=== PATIENT | female | born 1995 | race Two or more races ===

== ENCOUNTER 2022-07-24 22:33 | Emergency (ER) | payer MEDICAID ==
[~2022-07-24] VITALS: Ht 152.4 cm; Wt 90.9 kg
[2022-07-25 00:05] VITALS: BP 151/89
[2022-07-25 01:03] LABS: Urine Bacteria NONE SEEN /hpf (None Seen); Urine Blood Negative /uL (Negative); Urine Specific Gravity 1.016 (1.001-1.035); Urine WBC 6 /hpf (0 - 5)
[2022-07-25 01:11] LABS: Albumin 3.4 g/dL (3.4-5.0); Basophils # (auto) 0 10 ^3/uL (0-0.2); Basophils % (auto) 0.3 % (0.0-2.0); Calcium 8.5 mg/dL (8.5-10.1); Eosinophils # (auto) 0.3 10 ^3/uL (0-0.8); Eosinophils % (auto) 2.7 % (0.0-7.0); Hematocrit 40.5 % (36.0-46.0); Hemoglobin 13.5 g/dL (12.2-16.2); Lymphocytes # (auto) 3.4 10 ^3/uL (0.4-5.4); Lymphocytes % (auto) 30.4 % (10.0-50.0); Mean Corpuscular Hemoglobin 29.3 pg (28.0-32.0); Mean Corpuscular Hgb Conc. 33.3 g/dL (32.0-36.0); Monocytes # (auto) 0.7 10 ^3/uL (0-1.3); Monocytes % (auto) 6.2 % (0.0-12.0); Neutrophils # (auto) 6.8 10 ^3/uL (1.6-8.6); Neutrophils % (auto) 60.4 % (37.0-80.0); Nucleated Red Blood Cells % 0.1 %; Potassium 3.9 mmol/L (3.5-5.1); Red Blood Cells 4.61 10^6/uL (4.0-5.20); Red Cell Distribution Width 13.4 % (11.8-14.3); White Blood Cell 11.2 10^3/uL (4.4-10.8)
[2022-07-25 01:14] LABS: Bilirubin, Total 0.8 mg/dL (0.2-1.0); Total Protein 7.6 g/dL (6.4-8.2)
[2022-07-25] MEDS ORDERED: IOHEXOL 350 MG/ML 100ML IJ ONE (02:14)
[2022-07-25] MEDS ORDERED: BACDST PO (11:41)
[2022-07-25] MEDS ORDERED: IBUP800T27 PO (11:41)
== END 2022-07-25 05:13 | disposition left against medical advice (07) ==
LOC: ER 22:45
DX: R10.9 Unspecified abdominal pain (principal); R10.2 Pelvic and perineal pain; Z53.29 Procedure and treatment not carried out because of patient's decision for other reasons
CPT/HCPCS: 36415; 74177; 80053; 81001; 83690; 84702; 85025; 99285; Q9967

== ENCOUNTER 2022-07-25 11:10 | Emergency (ER) | payer MEDICAID ==
[~2022-07-25] VITALS: Ht 172.7 cm; Wt 91.0 kg
[2022-07-25] MEDS ORDERED: IBUP800T27 PO (11:41)
[2022-07-25] MEDS ORDERED: BACDST PO (11:41)
[2022-07-25 11:46] VITALS: BP 115/70
== END 2022-07-25 11:59 | disposition home or self-care (01) ==
LOC: ER 11:10
DX: N39.0 Urinary tract infection, site not specified (principal); N83.202 Unspecified ovarian cyst, left side; N83.201 Unspecified ovarian cyst, right side